=== PATIENT | female | born 1980 | race Two or more races ===

== ENCOUNTER 2019-04-21 17:06 | Emergency (ER) | payer SELFPAY ==
--- NOTE | 2019-04-21 17:44 | NUR ---
NOTIFIED BY REGISTRATION THAT PT INFORMED THEM THEY WERE LEAVING. LWBS.
== END 2019-04-21 17:49 | disposition left against medical advice (07) ==
LOC: ED 17:30
DX: M79.601 Pain in right arm (principal); Z53.21 Procedure and treatment not carried out due to patient leaving prior to being seen by health care provider